=== PATIENT | female | born 1970 | race Caucasian/White ===

== ENCOUNTER → 2020-12-27 | Outpatient (CLI) | payer OTHER ==
[~2020-12-27] MED LIST: ADMELOG100 UNIT/1 SC; ADMELOG100 UNIT/1 SQ; ALBUTEROL SULFATE; BAYER CHEWABLE81 MG PO; CELEBREX 200MG200 MG PO; CELECOXIB200 MG PO; CYMBALTA 30 MG30 MG PO; CYMBALTA60 MG PO; DULOXETINE HCL30 MG PO; ESTRACE1 MG PO; ESTRADIOL1 MG PO; FAMOTIDINE20 MG PO; FENOFIBRATE48 MG PO; GABAPENTIN800 MG PO; GLUCOPHAGE 500500 MG PO; HYDROCODON-ACE1 EAC2 PO; HYDROCODON-ACE1 EAC6 PO; IBUPROFEN800 MG PO; INCRUSE ELLI62.5 MCG INH; KLONOPIN TAB 00.5 MG PO; KLONOPIN0.5 MG PO; LOSARTAN; MIRTAZAPINE45 MG PO; NEURONTIN800 MG PO; PERCOCET 7.5-31 EACH PO; PROZAC40 MG PO; ROBAXIN 750 MG750 MG PO; SIMVASTATIN20 MG PO; VENTOLIN HFA 66.7 GM PO; VITAMIN D; VITAMIN D PO
[2020-12-27 12:04] LABS: HEMOGLOBIN 13.9 gm/dl (12.3-15.3); RED BLOOD COUNT 4.44 M/UL (4.00-5.10); WHITE BLOOD COUNT 6.8 K/UL (4.5-11.0)
[2020-12-27 12:25] LABS: BUN/CREATININE RATIO 19 (0-10)
== END ==
LOC: EDSTATUS 10:30 → OPSV2 10:30
PROVIDERS: Orthopaedic Surgery
DX: Z01.818 Encounter for other preprocedural examination (principal); M18.9 Osteoarthritis of first carpometacarpal joint, unspecified; Z88.0 Allergy status to penicillin; Z88.1 Allergy status to other antibiotic agents; Z88.2 Allergy status to sulfonamides; Z91.040 Latex allergy status
CPT/HCPCS: 36415; 80048; 81001; 83036; 85025; 87081; 93005

== ENCOUNTER → 2021-01-01 | Day surgery (SDC) | payer OTHER ==
[~2021-01-01] VITALS: Ht 152.4 cm; Wt 62.1 kg
== END | disposition home or self-care (01) ==
LOC: OR 06:06
DX: M18.0 Bilateral primary osteoarthritis of first carpometacarpal joints (principal); G89.29 Other chronic pain; F11.20 Opioid dependence, uncomplicated; I11.0 Hypertensive heart disease with heart failure; I50.9 Heart failure, unspecified; E78.5 Hyperlipidemia, unspecified; J44.9 Chronic obstructive pulmonary disease, unspecified; E11.9 Type 2 diabetes mellitus without complications; C53.9 Malignant neoplasm of cervix uteri, unspecified; F32.9 Major depressive disorder, single episode, unspecified; F41.9 Anxiety disorder, unspecified; Z88.0 Allergy status to penicillin; Z88.2 Allergy status to sulfonamides; Z88.1 Allergy status to other antibiotic agents; Z91.040 Latex allergy status; Z79.4 Long term (current) use of insulin; Z79.899 Other long term (current) drug therapy
CPT/HCPCS: 73130; 76000; 82962; C1713; J1100; J2001; J2250; J2704; J2795; J7030; J7120